=== PATIENT | male | born 1980 | race Two or more races ===

== ENCOUNTER 2020-01-18 15:01 | Emergency (ER) | payer OTHER ==
[~2020-01-18] VITALS: Ht 162.6 cm; Wt 71.4 kg
[2020-01-18] MEDS ORDERED: HYDROmorphone 1 MG/ML, 1ML INJ ONE ×2 (15:27→16:14)
[2020-01-18] MEDS ORDERED: ONDANSETRON 2MG/ML, 2ML ONE (15:28)
[2020-01-18] MEDS ORDERED: SODIUM CHLORIDE FLUSH 10ML SYR IVF ONE (15:30)
[2020-01-18] MEDS ORDERED: ONDANSETRON 2MG/ML, 2ML IVPush ONE (15:30)
[2020-01-18] MEDS: HYDROmorphone 1 MG/ML, 1ML INJ IVPush PRN ×2 (15:40→16:30)
[2020-01-18] MEDS ORDERED: PROPOFOL 10 MG/ML, 20ML ONE (16:16)
--- NOTE | 2020-01-18 16:46 | NUR ---
Simón omalley in EDM - 01/18/20 at 1647 by RFRUHLING 16f roe cath placed with Maykel RN as hand clipper. Patient tolerated well
--- NOTE | 2020-01-18 16:54 | NUR ---
PT TOLERATED PROCEDURE WELL. PT AWAKE AT THIS TIME. PLEASE REFER TO PAPER CHARTING FOR MED TIMES, VITAL SIGNS, AND PROCEDURE NOTES.
--- NOTE | 2020-01-18 17:03 | NUR ---
80mg propofol wasted with karthik rn in med room.
[2020-01-18] MEDS ORDERED: HYDROcodone/APAP 5/325 TABLET ONE (17:16)
--- NOTE | 2020-01-18 17:21 | NUR ---
Post splint application cms exam unremarkable Reviewed care of splint and sxs to watch for Medicated per emar for pain at 10/24
[2020-01-18] MEDS ORDERED: PROPOFOL 10 MG/ML, 20ML IV ONE (17:30)
[2020-01-18] MEDS ORDERED: HYDROcodone/APAP 5/325 TABLET PO ONE (17:30)
[2020-01-18 17:33] VITALS: BP 157/73
== END 2020-01-18 17:36 | disposition home or self-care (01) ==
LOC: ED 17:24
DX: S52.571A Other intraarticular fracture of lower end of right radius, initial encounter for closed fracture (principal); W19.XXXA Unspecified fall, initial encounter; Y93.89 Activity, other specified; Y92.69 Other specified industrial and construction area as the place of occurrence of the external cause; Y99.0 Civilian activity done for income or pay
CPT/HCPCS: 25605; 73100; 73110; 96374; 96375; 96376; 99285; J1170; J2405; J2704